=== PATIENT | female | born 2000 | race Caucasian/White ===

== ENCOUNTER 2023-10-21 04:00 | Inpatient (IN) | payer MEDICAID ==
[~2023-10-21] VITALS: Ht 160 cm; Wt 81.6 kg
[2023-10-21 04:04] VITALS: O2SAT 100
[2023-10-21] MEDS: KETOROLAC 30MG/ML VIAL IV STA (05:22)
[2023-10-21] MEDS: FAMOTIDINE 20MG/2ML VIAL IV STA (05:23)
[2023-10-21] MEDS: ONDANSETRON HCL 4MG/2ML INJ IV STA (05:23)
[2023-10-21] MEDS: SODIUM CHLORIDE 0.9% 1,000 ML IV ONE (05:38)
[2023-10-21 05:47] LABS: HEMOGLOBIN. 15.4 g/dL (12.0-16.0); MEAN CORPUSCULAR HGB CONC 34.3 g/dL (31.0-37.0); MEAN CORPUSCULAR VOLUME 90.4 fL (81.0-99.0); MEAN PLATELET VOLUME 8.7 fl (7.4-10.4); PLATELET 269 x1000/uL (130-400); RED BLOOD CELL COUNT 4.98 mill/uL (4.2-5.4); RED CELL DISTRIBUTION WIDTH 13.7 % (11.6-14.6); WHITE BLOOD COUNT 15.7 x1000/uL (4.5-11.0)
[2023-10-21 05:54] LABS: INR 0.9; PROTHROMBIN TIME 10.5 sec (9.6-11.0)
[2023-10-21 06:01] LABS: ALANINE AMINOTRANSFERASE 25 IU/L (10-49); ALBUMIN 4.4 g/dL (3.2-4.8); ASPARTATE AMINOTRANSFERASE 25 IU/L (<34); BILIRUBIN TOTAL 1.1 mg/dL (0.1-1.0); CALCIUM 8.7 mg/dL (8.7-10.4); CARBON DIOXIDE 17 mEq/L (21-32); CHLORIDE 108 mEq/L (98-107); CREATININE 0.7 mg/dL (0.6-1.0); GLUCOSE 146 mg/dL (70-105); PROTEIN TOTAL 7.2 g/dL (6.0-8.3); SODIUM 139 mEq/L (136-145); UREA NITROGEN BLOOD 16 mg/dL (9-23)
[2023-10-21] MEDS ORDERED: ACETAMINOPHEN 10MG/ML IV SOLN IV ONE (06:15)
[2023-10-21 06:35] LABS: HCG SCREEN NEGATIVE
[2023-10-21 06:41] LABS: DIFFERENTIAL COMMENT 1
[2023-10-21] MEDS: ACETAMINOPHEN 1000MG/100ML IV NR (06:59)
[2023-10-21] MEDS: MORPHINE SULFATE 4 MG/ML INJ (FOR IV/IM USE) IV ONE (08:04)
[2023-10-21] MEDS ORDERED: CLONIDINE 0.1MG TABLET PO PRN (08:45)
[2023-10-21] MEDS: ENOXAPARIN 40MG/0.4ML SYR SUBCUT SCH (08:45)
[2023-10-21] MEDS ORDERED: ACETAMINOPHEN 325MG TABLET PO PRN (08:45)
[2023-10-21] MEDS ORDERED: IPRATROPIUM/ALBUTEROL 0.5-3(2.5)MG/3ML NEB NEB PRN (08:45)
[2023-10-21] MEDS ORDERED: MAGNESIUM/ALUMINUM HYDROXIDE/SIMETHICONE 30ML UDC PO PRN (08:45)
[2023-10-21] MEDS ORDERED: NALOXONE HCL 0.4MG/ML VIAL IV PRN (09:00)
[2023-10-21] MEDS: ONDANSETRON HCL 4MG/2ML INJ IV ONE (09:18)
[2023-10-21 09:47] LABS: PLATELET ESTIMATE NORMAL
[2023-10-21 11:00] VITALS: BP 128/62; PULSE 78; RESP 18; TEMP 98.2
[2023-10-21] MEDS: TRAMADOL HCL/ACETAMINOPHEN 37.5/325MG TABLET PO PRN (11:44)
[2023-10-21 11:56] VITALS: BP 113/59; RESP 18; TEMP 98
[2023-10-21] MEDS: ONDANSETRON HCL 4MG/2ML INJ IV PRN (12:19)
[2023-10-21] MEDS: MORPHINE SULFATE 2 MG/ML CPJ (NOT FOR IM USE) IV PRN (15:44)
[2023-10-21 20:00] VITALS: BP 118/64; PULSE 76; RESP 18; TEMP 98.8
[2023-10-22] VITALS: BP 122/78; PULSE 82; RESP 18; TEMP 97.7
[2023-10-22 04:00] VITALS: BP 116/59; PULSE 70; RESP 18; TEMP 97.9
[2023-10-22] MEDS: ENOXAPARIN 40MG/0.4ML SYR SUBCUT SCH (08:57)
[2023-10-22 09:21] LABS: BASOPHILS % 0.9 % (0.0-2.0); EOSINOPHILS % 13.4 % (0.0-5.0); HEMATOCRIT. 40.2 % (36.0-48.0); HEMOGLOBIN. 13.4 g/dL (12.0-16.0); LYMPHOCYTES % 31.6 % (20.0-50.0); MEAN CORPUSCULAR HEMOGLOBIN 30.2 pg (28.0-32.0); MEAN CORPUSCULAR HGB CONC 33.3 g/dL (31.0-37.0); MEAN CORPUSCULAR VOLUME 90.7 fL (81.0-99.0); MEAN PLATELET VOLUME 8.5 fl (7.4-10.4); MONOCYTES % 11.8 % (2.0-8.0); NEUTROPHILS % 42.3 % (40.0-76.0); PLATELET 174 x1000/uL (130-400); RED BLOOD CELL COUNT 4.43 mill/uL (4.2-5.4); RED CELL DISTRIBUTION WIDTH 13.7 % (11.6-14.6); WHITE BLOOD COUNT 2.9 x1000/uL (4.5-11.0)
[2023-10-22 09:45] LABS: ALANINE AMINOTRANSFERASE 20 IU/L (10-49); ALBUMIN 3.7 g/dL (3.2-4.8); ASPARTATE AMINOTRANSFERASE 26 IU/L (<34); BILIRUBIN TOTAL 0.3 mg/dL (0.1-1.0); CALCIUM 8.3 mg/dL (8.7-10.4); CARBON DIOXIDE 25 mEq/L (21-32); CHLORIDE 108 mEq/L (98-107); CREATININE 0.7 mg/dL (0.6-1.0); GLUCOSE 90 mg/dL (70-105); PHOSPHORUS 3.3 mg/dL (2.5-4.9); POTASSIUM 4.2 mEq/L (3.5-5.1); PROTEIN TOTAL 6.1 g/dL (6.0-8.3); SODIUM 139 mEq/L (136-145); UREA NITROGEN BLOOD 6 mg/dL (9-23)
[2023-10-22 12:00] VITALS: BP 122/59; PULSE 62; RESP 19; TEMP 97.7
[2023-10-22] MEDS: ACETAMINOPHEN 325MG TABLET PO PRN (13:47)
[2023-10-22 16:00] VITALS: BP 124/48; PULSE 65; RESP 19; TEMP 98.1
[2023-10-22 19:53] VITALS: BP 154/38; PULSE 64; RESP 20; TEMP 98.1
[2023-10-22 21:29] LABS: *AMPHETAMINES SCREEN URINE NEGATIVE (NEGATIVE); *BARBITURATES SCREEN URINE NEGATIVE (NEGATIVE); *BENZODIAZEPINES SCREEN URINE NEGATIVE (NEGATIVE); *COCAINE SCREEN URINE NEGATIVE (NEGATIVE); CANNABINOID URINE SCREEN PRESUMPTIVE POSITIVE (NEGATIVE); ECSTASY MDMA SCREEN URINE NEGATIVE (NEGATIVE); METHADONE URINE SCREEN Neg (NEGATIVE); OPIATES URINE SCREEN PRESUMPTIVE POSITIVE (NEGATIVE); PHENCYCLIDINE URINE SCREEN NEGATIVE (NEGATIVE)
[2023-10-23 12:00] VITALS: BP 127/55; PULSE 66; RESP 20; TEMP 97.9
[2023-10-23 16:00] VITALS: BP 111/50; PULSE 70; RESP 20; TEMP 97.9
[2023-10-23] MEDS: HYDROCODONE/ACETAMINOPHEN 5/325MG TABLET PO PRN (17:39)
[2023-10-23 20:00] VITALS: BP 127/55; PULSE 63; RESP 19; TEMP 98.6
[2023-10-23] MEDS: QUETIAPINE FUMARATE 50MG TABLET PO SCH (21:46)
[2023-10-24] VITALS: BP 112/53; PULSE 60; RESP 18; TEMP 98.4
[2023-10-24 08:00] VITALS: BP 115/72; PULSE 60; RESP 20; TEMP 97.9
[2023-10-24] MEDS: BUSPIRONE HCL 5MG TABLET PO SCH (08:53)
[2023-10-24 16:00] VITALS: BP 132/81; PULSE 81; TEMP 97.9
[2023-10-25 08:00] VITALS: BP 114/64; PULSE 70; RESP 19; TEMP 96.1
[2023-10-25 12:00] VITALS: BP 106/64; PULSE 69; RESP 18; TEMP 97.7
[2023-10-25] MEDS: LIDOCAINE 5% PATCH TOP SCH (13:30)
[2023-10-25] MEDS: CALCITONIN,SALMON, 3.7 ML NASAL SPRAY ONENSTRL SCH (15:00)
[2023-10-25 16:00] VITALS: BP 117/60; PULSE 75; RESP 19; TEMP 97.5
[2023-10-25] MEDS: DICLOFENAC SODIUM 1% GEL 50GM TOP SCH (17:12)
[2023-10-25 20:00] VITALS: BP 113/72; PULSE 69; RESP 20; TEMP 96.6
[2023-10-25 21:34] VITALS: PULSE 69
[2023-10-26 09:25] VITALS: BP 112/57; RESP 18
[2023-10-26] MEDS ORDERED: QUET50TA PO (14:44)
[2023-10-26] MEDS ORDERED: BUSP5TAB3 PO (14:44)
[2023-10-26] MEDS ORDERED: LIDO700A30 TOP (14:44)
[2023-10-26] MEDS ORDERED: CALC3.8S ONENSTRL (14:44)
[2023-10-26] MEDS ORDERED: IBUP-2028 PO (14:54)
[2023-10-26] MEDS ORDERED: TOPUD PO (14:54)
[2023-10-26] MEDS ORDERED: HYDR-4001 PO (15:02)
== END 2023-10-26 15:35 | disposition home or self-care (01) | DRG 203 ==
LOC: ER 04:00 → 6EST 07:47 → EDBEDREQ 07:51 → EDBEDREQTM 07:51
PROVIDERS: ADMIT Internal Medicine; ATTEND Internal Medicine
DX: R07.89 Other chest pain (principal); M48.56XA Collapsed vertebra, not elsewhere classified, lumbar region, initial encounter for fracture; F31.9 Bipolar disorder, unspecified; J45.909 Unspecified asthma, uncomplicated; F42.9 Obsessive-compulsive disorder, unspecified; F60.3 Borderline personality disorder; N94.89 Other specified conditions associated with female genital organs and menstrual cycle; F41.9 Anxiety disorder, unspecified; Z88.0 Allergy status to penicillin; Z59.00 Homelessness unspecified; X58.XXXA Exposure to other specified factors, initial encounter; Y93.89 Activity, other specified; Y92.89 Other specified places as the place of occurrence of the external cause; Y99.8 Other external cause status
CPT/HCPCS: 36415; 71100; 71250; 72050; 72070; 72110; 73560; 74176; 80053; 80305; 83036; 83735; 84100; 84703; 85025; 97116; 97162; 97166; 97530; 97760; 99285; J1650; J1885; J2270; J2405; J3490; J7030; J0131